=== PATIENT | female | born 2000 | race African-American/Black ===

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

== ENCOUNTER 2019-07-29 12:07 | Inpatient (IN) ==
[2019-07-29] MEDS ORDERED: ONDANSETRON 4 MG/2 ML VIAL IV PRN ×2 (12:13→14:49)
[2019-07-29] MEDS ORDERED: MEPERIDINE 50 MG/1 ML VIAL IV PRN (12:13)
[2019-07-29] MEDS ORDERED: ePHEDrine 50 MG/ML AMP IV PRN (12:21)
[2019-07-29] MEDS ORDERED: LACTATED RINGERS 1,000 ML IV ONE (12:21)
[2019-07-29] MEDS ORDERED: CITRIC ACID/SODIUM CITRATE 30 ML UDCUP PO ONE (12:21)
[2019-07-29] MEDS ORDERED: FAMOTIDINE 20 MG/2 ML VIAL IV ONE (12:21)
[2019-07-29] MEDS ORDERED: NALOXONE 0.4 MG/ML VIAL IV PRN (12:22)
[2019-07-29] MEDS ORDERED: diphenhydrAMINE 50 MG/1 ML VIAL IV PRN ×2 (12:22)
[2019-07-29] MEDS ORDERED: hydrOXYzine HCL 25 MG/1 ML VIAL IM PRN (12:22)
[2019-07-29] MEDS ORDERED: PROMETHAZINE 25 MG/1 ML VIAL IM ONE (12:22)
[2019-07-29] MEDS ORDERED: fentaNYL 2 MCG/ROPIV 0.2% EPID 100 ML EPIDURAL SCH (12:30)
[2019-07-29] MEDS ORDERED: LACTATED RINGERS 1,000 ML IV SCH (12:30)
[2019-07-29 12:36] LABS: Basophils % 0.1 % (0.0-0.8); Eosinophils % 0.1 % (0.00-10.9); Hematocrit 32.7 VOL% (35.7-47.0); Hemoglobin 10.8 GM/DL (12.0-16.0); Immature Granulocytes % 0.4 %; Immature Granulocytes Absolute 0.06 #; Lymphocytes # 1.8 10*3/uL (1.4-4.0); Lymphocytes % 12.6 % (21.3-54.2); Mean Corpuscular Volume 97.6 FL (87-102); Mean Platelet Volume 11.1 FL (9.6-12.0); Monocytes % 7.1 % (1.7-12.7); Neutrophils % 79.7 % (38.7-73.9); Platelet Count 173 T/CUMM (130-400); Red Blood Count 3.35 MC/CUMM (3.8-5.5)
[2019-07-29 12:56] LABS: Alanine Aminotransferase < 9 U/L (13-56); Albumin 2.7 G/DL (3.4-5.0); Alkaline Phosphatase 131 U/L (45-117); Aspartate Amino Transferase 11 U/L (0-37); Blood Urea Nitrogen 5 MG/DL (7-18); Calcium 8.8 MG/DL (8.5-10.1); Estimated Glom Filtration Rate 164 ML/MIN; Glucose 78 MG/DL (74-106); Total Protein 7.5 G/DL (6.4-8.3); Uric Acid 3.9 MG/DL (2.6-6.0)
[2019-07-29] MEDS ORDERED: OXYTOCIN/LR 20 UNIT/1,000 ML BAG IV SCH (13:00)
[2019-07-29] MEDS ORDERED: ROPIVACAINE 0.5% 30 ML VIAL ONE (13:36)
[2019-07-29] MEDS ORDERED: miSOPROStoL 200 MCG TABLET ONE (13:51)
[2019-07-29] MEDS ORDERED: METHYLERGONOVINE 0.2 MG/1 ML AMP ONE (13:51)
[2019-07-29] MEDS ORDERED: CARBOPROST TROMETHAMINE 250 MCG/ML AMP IM ONE (13:51)
[2019-07-29] MEDS ORDERED: LIDOCAINE 1% 50 ML VIAL ONE (13:52)
[2019-07-29] MEDS ORDERED: RHO(D) IMMUNE GLOBULIN 300 MCG SYRINGE IM ONE (14:49)
[2019-07-29] MEDS ORDERED: BISACODYL 10 MG SUPP RECTAL PRN (14:49)
[2019-07-29] MEDS ORDERED: ACETAMINOPHEN 325 MG TABLET PO PRN (14:49)
[2019-07-29] MEDS ORDERED: HYDROCORTISONE 2.5% RECTAL CREAM 30 GM TUBE TOP PRN (14:49)
[2019-07-29] MEDS ORDERED: DIPH/TET/ACEL PERT BOOSTER VACCINE 0.5 ML VIAL IM ONE (14:49)
[2019-07-29] MEDS ORDERED: oxyCODONE/ACETAMINOPHEN 5-325 MG TABLET PO PRN ×2 (14:49)
[2019-07-29] MEDS ORDERED: MEASLES/MUMPS/RUBELLA VACCINE 0.5 ML VIAL SUBCUT ONE (14:49)
[2019-07-29] MEDS ORDERED: OXYTOCIN/LR 20 UNIT/1,000 ML BAG IV ONE (14:49)
[2019-07-29] MEDS ORDERED: WITCH HAZEL PADS 100/JAR TOP PRN (14:49)
[2019-07-29] MEDS ORDERED: BENZOCAINE 20%/MENTHOL 0.5% SPRAY 56 GM CAN TOP PRN (14:49)
[2019-07-29] MEDS ORDERED: LANOLIN 50% CREAM 0.3 OZ TUBE TOP PRN (14:49)
[2019-07-29] MEDS: DOCUSATE SODIUM 100 MG CAPSULE PO SCH (21:49)
[2019-07-30] MEDS: IBUPROFEN 800 MG TABLET PO PRN ×2 (04:42→20:31)
[2019-07-30 07:38] LABS: Basophils % 0.2 % (0.0-0.8); Eosinophils % 0.3 % (0.00-10.9); Hematocrit 29.9 VOL% (35.7-47.0); Hemoglobin 9.6 GM/DL (12.0-16.0); Immature Granulocytes % 0.5 %; Immature Granulocytes Absolute 0.07 #; Lymphocytes # 2.1 10*3/uL (1.4-4.0); Lymphocytes % 15.2 % (21.3-54.2); Mean Corpuscular HGB Conc 32.1 GM/DL (32-36); Mean Corpuscular Volume 98.7 FL (87-102); Mean Platelet Volume 11.5 FL (9.6-12.0); Monocytes % 8.1 % (1.7-12.7); Neutrophils % 75.7 % (38.7-73.9); Platelet Count 137 T/CUMM (130-400); Red Blood Count 3.03 MC/CUMM (3.8-5.5); Red Cell Distribution Width 13.2 % (9.3-17.3); White Blood Count 13.5 T/CUMM (4-12)
[2019-07-30] MEDS: DOCUSATE SODIUM 100 MG CAPSULE PO SCH ×2 (08:20→20:31)
[2019-07-30 12:34] LABS: Anisocytosis 1+; Hypochromasia 1+; Platelet Estimate Adequate; Polychromasia Slight
[2019-07-31] MEDS: DOCUSATE SODIUM 100 MG CAPSULE PO SCH (08:10)
[2019-07-31 09:32] VITALS: BP 116/67
== END 2019-07-31 11:00 | disposition home or self-care (01) | DRG 560 ==
LOC: N.LD 12:07 → N.OB 18:00
PROVIDERS: ADMIT Obstetrics & Gynecology; ATTEND Obstetrics & Gynecology

== ENCOUNTER 2020-07-31 06:08 | Inpatient (IN) ==
[2020-07-31] MEDS ORDERED: ONDANSETRON 4 MG/2 ML VIAL IV PRN (06:15)
[2020-07-31] MEDS ORDERED: MEPERIDINE 50 MG/1 ML VIAL IV PRN (06:15)
[2020-07-31] MEDS ORDERED: BUTORPHANOL 2 MG/ML VIAL IV PRN (06:15)
[2020-07-31] MEDS ORDERED: LACTATED RINGERS 500 ML IV PRN (06:15)
[2020-07-31] MEDS ORDERED: LACTATED RINGERS 1,000 ML IV SCH (06:30)
[2020-07-31] MEDS ORDERED: ePHEDrine 50 MG/ML VIAL IV PRN (06:55)
[2020-07-31] MEDS ORDERED: CITRIC ACID/SODIUM CITRATE 30 ML UDCUP PO ONE (06:55)
[2020-07-31] MEDS ORDERED: NALOXONE 0.4 MG/ML VIAL IV PRN (06:55)
[2020-07-31] MEDS ORDERED: LACTATED RINGERS 1,000 ML IV ONE (06:55)
[2020-07-31] MEDS ORDERED: FAMOTIDINE 20 MG/2 ML VIAL IV ONE (06:55)
[2020-07-31] MEDS ORDERED: diphenhydrAMINE 50 MG/1 ML VIAL IV PRN ×2 (06:55)
[2020-07-31] MEDS ORDERED: fentaNYL 2 MCG/ROPIV 0.2% EPID 100 ML EPIDURAL SCH (07:00)
[2020-07-31] MEDS ORDERED: OXYTOCIN/LR 20 UNIT/1,000 ML BAG IV ONE ×2 (07:06→13:44)
[2020-07-31] MEDS ORDERED: miSOPROStoL 200 MCG TABLET ONE (07:06)
[2020-07-31] MEDS ORDERED: TRANEXAMIC ACID 1,000 MG/10 ML VIAL ONE (07:06)
[2020-07-31] MEDS ORDERED: CARBOPROST TROMETHAMINE 250 MCG/ML AMP IM ONE (07:07)
[2020-07-31] MEDS ORDERED: METHYLERGONOVINE 0.2 MG/1 ML AMP ONE (07:07)
[2020-07-31] MEDS ORDERED: SODIUM CHLORIDE 0.9% 0 ML IV ONE (07:10)
[2020-07-31 07:15] LABS: Basophils % 0.4 % (0.0-0.8); Eosinophils % 0.2 % (0.00-10.9); Hematocrit 28.7 VOL% (35.7-47.0); Hemoglobin 9.3 GM/DL (12.0-16.0); Immature Granulocytes % 0.4 %; Immature Granulocytes Absolute 0.03 #; Lymphocytes % 24.8 % (21.3-54.2); Mean Corpuscular HGB Conc 32.4 GM/DL (32-36); Mean Corpuscular Volume 94.1 FL (87-102); Mean Platelet Volume 11.7 FL (9.6-12.0); Monocytes % 8.9 % (1.7-12.7); Neutrophils % 65.3 % (38.7-73.9); Platelet Count 148 T/CUMM (130-400); Red Blood Count 3.05 MC/CUMM (3.8-5.5); Red Cell Distribution Width 13.2 % (9.3-17.3); White Blood Count 8.1 T/CUMM (4-12)
[2020-07-31 07:33] LABS: Lymphocytes 25 % (20-55); Platelet Estimate Adequate; Segmented Neutrophils 67 % (50-85); Total Cells Counted 100
[2020-07-31 07:34] LABS: Hypochromasia 1+; Microcytosis 1+
[2020-07-31] MEDS ORDERED: OXYTOCIN/LR 20 UNIT/1,000 ML BAG IV SCH (08:45)
[2020-07-31 10:03] LABS: Bacteria,Urine Occasional /HPF (Few); Bilirubin,Urine Negative (Negative); Blood, Urine Negative (Negative); Glucose,Urine (UA) Negative (Negative); Ketones,Urine Negative (Negative); Mucus,Urine Occasional /LPF (Occasional); Nitrite,Urine Negative (Negative); Protein,Urine Negative; RBC,Urine <1 /HPF (0-4); Squamous Epithelial Cell,Urine Occasional /HPF (0-10); Urine Appearance CLEAR (Clear); Urine Color Straw (Yellow); Urine Specific Gravity 1.008 (1.001-1.035); Urine Urobilinogen < 2.0 EU/DL (0.2-1.0)
[2020-07-31 11:29] LABS: Cord Venous Blood HCO3 24.5 MMOL/L; Cord Venous Blood PCO2 45.6 MMHG; Cord Venous Blood PO2 34.6
[2020-07-31] MEDS ORDERED: LANOLIN 50% CREAM 0.3 OZ TUBE TOP PRN (13:44)
[2020-07-31] MEDS ORDERED: MEASLES/MUMPS/RUBELLA VACCINE 0.5 ML VIAL SUBCUT ONE (13:44)
[2020-07-31] MEDS ORDERED: oxyCODONE/ACETAMINOPHEN 5-325 MG TABLET PO PRN ×2 (13:44)
[2020-07-31] MEDS ORDERED: DIPH/TET/ACEL PERT BOOSTER VACCINE 0.5 ML VIAL IM ONE (13:44)
[2020-07-31] MEDS ORDERED: RHO(D) IMMUNE GLOBULIN 300 MCG SYRINGE IM ONE (13:44)
[2020-07-31] MEDS ORDERED: BENZOCAINE 20%/MENTHOL 0.5% SPRAY 56 GM CAN TOP PRN (13:44)
[2020-07-31] MEDS ORDERED: ACETAMINOPHEN 325 MG TABLET PO PRN (13:44)
[2020-07-31] MEDS ORDERED: HYDROCORTISONE 2.5% RECTAL CREAM 30 GM TUBE TOP PRN (13:44)
[2020-07-31] MEDS ORDERED: BISACODYL 10 MG SUPP RECTAL PRN (13:44)
[2020-07-31] MEDS ORDERED: WITCH HAZEL PADS 100/JAR TOP PRN (13:44)
[2020-07-31] MEDS: IBUPROFEN 800 MG TABLET PO PRN (16:16)
[2020-07-31] MEDS: DOCUSATE SODIUM 100 MG CAPSULE PO SCH (21:17)
[2020-08-01] MEDS: IBUPROFEN 800 MG TABLET PO PRN ×3 (00:17→20:11)
[2020-08-01 05:03] LABS: Basophils % 0.3 % (0.0-0.8); Eosinophils # 0.1 10*3/uL (0.0-0.87); Eosinophils % 0.7 % (0.00-10.9); Hematocrit 29.4 VOL% (35.7-47.0); Hemoglobin 9.4 GM/DL (12.0-16.0); Immature Granulocytes Absolute 0.11 #; Lymphocytes # 2.4 10*3/uL (1.4-4.0); Lymphocytes % 22.3 % (21.3-54.2); Mean Corpuscular Volume 94.5 FL (87-102); Mean Platelet Volume 12.1 FL (9.6-12.0); Monocytes % 6.5 % (1.7-12.7); Neutrophils % 69.2 % (38.7-73.9); Platelet Count 133 T/CUMM (130-400); Red Blood Count 3.11 MC/CUMM (3.8-5.5); Red Cell Distribution Width 13.2 % (9.3-17.3); White Blood Count 10.9 T/CUMM (4-12)
[2020-08-01] MEDS: DOCUSATE SODIUM 100 MG CAPSULE PO SCH ×2 (09:54→20:11)
[2020-08-02 08:21] VITALS: BP 109/71
[2020-08-02] MEDS: DOCUSATE SODIUM 100 MG CAPSULE PO SCH (08:33)
== END 2020-08-02 11:23 | disposition home or self-care (01) | DRG 560 ==
LOC: N.LD 06:08 → N.OB 13:44
PROVIDERS: ADMIT Obstetrics & Gynecology; ATTEND Obstetrics & Gynecology

== ENCOUNTER 2020-12-07 16:09 | Observation (INO) ==
[2020-12-07] MEDS ORDERED: SODIUM CHLORIDE 0.9% 1,000 ML IV STA (16:59)
[2020-12-07 17:13] LABS: Basophils % 0.1 % (0.0-0.8); Eosinophils % 0.1 % (0.00-10.9); Hematocrit 28.9 VOL% (35.7-47.0); Hemoglobin 9.7 GM/DL (12.0-16.0); Immature Granulocytes % 0.5 %; Immature Granulocytes Absolute 0.07 #; Lymphocytes # 2.3 10*3/uL (1.4-4.0); Lymphocytes % 16.8 % (21.3-54.2); Mean Corpuscular HGB Conc 33.6 GM/DL (32-36); Mean Corpuscular Volume 95.1 FL (87-102); Mean Platelet Volume 10.9 FL (9.6-12.0); Monocytes % 7.8 % (1.7-12.7); Neutrophils % 74.7 % (38.7-73.9); Platelet Count 248 T/CUMM (130-400); Red Blood Count 3.04 MC/CUMM (3.8-5.5); Red Cell Distribution Width 12.3 % (9.3-17.3); White Blood Count 13.6 T/CUMM (4-12)
[2020-12-07] MEDS ORDERED: ONDANSETRON 4 MG/2 ML VIAL IV PRN ×2 (18:19→20:52)
[2020-12-07] MEDS ORDERED: LACTATED RINGERS 1,000 ML IV SCH ×2 (18:30→21:00)
[2020-12-07] MEDS ORDERED: LIDOCAINE 2% 5 ML VIAL ONE (19:15)
[2020-12-07] MEDS ORDERED: fentaNYL 100 MCG/2 ML VIAL ONE (19:15)
[2020-12-07] MEDS ORDERED: MIDAZOLAM 2 MG/2 ML VIAL ONE (19:15)
[2020-12-07] MEDS ORDERED: ONDANSETRON 4 MG/2 ML VIAL ONE ×2 (19:15→20:03)
[2020-12-07] MEDS ORDERED: propofoL 200 MG/20 ML VIAL IV ONE (19:15)
[2020-12-07] MEDS ORDERED: KETOROLAC 30 MG/1 ML VIAL ONE (20:03)
[2020-12-07] MEDS ORDERED: SEVOFLURANE 1 UNIT/15 MINUTE INH ONE (20:03)
[2020-12-07] MEDS ORDERED: DEXAMETHASONE 4 MG/1 ML VIAL ONE (20:03)
[2020-12-07] MEDS ORDERED: ACETAMINOPHEN 325 MG TABLET PO PRN (20:52)
[2020-12-07] MEDS ORDERED: IBUPROFEN 800 MG TABLET PO PRN (20:52)
[2020-12-07] MEDS ORDERED: BUTORPHANOL 2 MG/ML VIAL IV PRN (20:52)
[2020-12-07] MEDS ORDERED: miSOPROStoL 200 MCG TABLET RECTAL ONE (21:03)
[2020-12-07] MEDS ORDERED: miSOPROStoL 200 MCG TABLET ONE (21:27)
[2020-12-07 21:32] LABS: Hypochromasia 1+; Platelet Estimate Normal; Reactive Lymphocytes 2+
[2020-12-08 05:57] LABS: Basophils % 0.1 % (0.0-0.8); Hematocrit 22.4 VOL% (35.7-47.0); Immature Granulocytes % 0.5 %; Immature Granulocytes Absolute 0.05 #; Lymphocytes # 0.6 10*3/uL (1.4-4.0); Lymphocytes % 6.4 % (21.3-54.2); Mean Corpuscular Volume 96.6 FL (87-102); Mean Platelet Volume 10.8 FL (9.6-12.0); Monocytes % 1.3 % (1.7-12.7); Neutrophils % 91.7 % (38.7-73.9); Platelet Count 208 T/CUMM (130-400); Red Cell Distribution Width 12.6 % (9.3-17.3); White Blood Count 9.8 T/CUMM (4-12)
[2020-12-08 06:02] LABS: Hemoglobin 7.4 GM/DL (12.0-16.0); Red Blood Count 2.32 MC/CUMM (3.8-5.5)
[2020-12-08 06:17] LABS: Lymphocytes 3 % (20-55); Segmented Neutrophils 96 % (50-85); Total Cells Counted 100
[2020-12-08 06:18] LABS: Hypochromasia Slight; Microcytosis 1+; Platelet Estimate Normal
[2020-12-08 08:59] VITALS: BP 131/68
[2020-12-08] MEDS ORDERED: FERROUS SULFATE 325 MG TABLET PO SCH (21:00)
== END 2020-12-08 10:55 | disposition home or self-care (01) ==
LOC: N.ED 16:09 → N.EDINP 16:09 → N.OB 19:09
PROVIDERS: ADMIT Obstetrics & Gynecology; ATTEND Obstetrics & Gynecology

== ENCOUNTER 2022-01-19 11:13 | Inpatient (IN) ==
[2022-01-19] MEDS ORDERED: LACTATED RINGERS 1,000 ML IV SCH ×2 (12:00→12:30)
[2022-01-19] MEDS ORDERED: BUTORPHANOL 2 MG/ML VIAL IV PRN (12:00)
[2022-01-19] MEDS ORDERED: miSOPROStoL 200 MCG TABLET RECTAL PRN (12:00)
[2022-01-19] MEDS ORDERED: METHYLERGONOVINE 0.2 MG/1 ML AMP IM PRN (12:00)
[2022-01-19] MEDS ORDERED: CARBOPROST TROMETHAMINE 250 MCG/ML AMP IM PRN (12:00)
[2022-01-19] MEDS ORDERED: ONDANSETRON 4 MG/2 ML VIAL IV PRN (12:00)
[2022-01-19] MEDS ORDERED: MEPERIDINE 50 MG/1 ML VIAL IV PRN (12:00)
[2022-01-19] MEDS ORDERED: LACTATED RINGERS 500 ML IV PRN (12:00)
[2022-01-19] MEDS ORDERED: OXYTOCIN/LR 20 UNIT/1,000 ML BAG IV ONE ×2 (12:00→16:47)
[2022-01-19] MEDS ORDERED: TRANEXAMIC ACID 1,000 MG in SODIUM CHLORIDE 0.9% 100 ML IV PRN (12:00)
[2022-01-19] MEDS ORDERED: OXYTOCIN/LR 20 UNIT/1,000 ML BAG IV SCH (12:00)
[2022-01-19] MEDS ORDERED: diphenhydrAMINE 50 MG/1 ML VIAL IV PRN ×2 (12:06)
[2022-01-19] MEDS ORDERED: FAMOTIDINE 20 MG/2 ML VIAL IV ONE (12:06)
[2022-01-19] MEDS ORDERED: NALOXONE 0.4 MG/ML VIAL IV PRN (12:06)
[2022-01-19] MEDS ORDERED: ePHEDrine 50 MG/ML VIAL IV PRN (12:06)
[2022-01-19] MEDS ORDERED: CITRIC ACID/SODIUM CITRATE 30 ML UDCUP PO ONE (12:06)
[2022-01-19] MEDS ORDERED: fentaNYL 2 MCG/ROPIV 0.2% EPID 100 ML EPIDURAL SCH (12:30)
[2022-01-19 12:43] LABS: Basophils % 0.2 % (0.0-0.8); Eosinophils % 0.1 % (0.00-10.9); Hematocrit 27.8 VOL% (35.7-47.0); Hemoglobin 8.2 GM/DL (12.0-16.0); Immature Granulocytes % 0.6 %; Immature Granulocytes Absolute 0.08 #; Lymphocytes # 1.7 10*3/uL (1.4-4.0); Lymphocytes % 12.3 % (21.3-54.2); Mean Corpuscular HGB Conc 29.5 GM/DL (32-36); Mean Corpuscular Volume 82.5 FL (87-102); Mean Platelet Volume 12.3 FL (9.6-12.0); Monocytes # 1.1 10*3/uL (0.11-0.8); Monocytes % 7.7 % (1.7-12.7); Neutrophils % 79.1 % (38.7-73.9); Platelet Count 163 T/CUMM (130-400); Red Blood Count 3.37 MC/CUMM (3.8-5.5); Red Cell Distribution Width 15.9 % (9.3-17.3); White Blood Count 13.8 T/CUMM (4-12)
[2022-01-19] MEDS ORDERED: ACETAMINOPHEN/CODEINE 300-30 MG TABLET PO ONE (14:18)
[2022-01-19 14:21] LABS: Cord Arterial Blood HCO3 24.1 MMOL/L
[2022-01-19 14:22] LABS: Cord Venous Blood HCO3 24.6 MMOL/L; Cord Venous Blood PCO2 39.9 MMHG; Cord Venous Blood PO2 39.2
[2022-01-19] MEDS ORDERED: DIPH/TET/ACEL PERT BOOSTER VACCINE 0.5 ML VIAL IM ONE (16:47)
[2022-01-19] MEDS ORDERED: BENZOCAINE 20%/MENTHOL 0.5% SPRAY 56 GM CAN TOP PRN (16:47)
[2022-01-19] MEDS ORDERED: WITCH HAZEL PADS 100/JAR TOP PRN (16:47)
[2022-01-19] MEDS ORDERED: oxyCODONE/ACETAMINOPHEN 5-325 MG TABLET PO PRN ×2 (16:47)
[2022-01-19] MEDS ORDERED: RHO(D) IMMUNE GLOBULIN 300 MCG SYRINGE IM ONE (16:47)
[2022-01-19] MEDS ORDERED: MEASLES/MUMPS/RUBELLA VACCINE 0.5 ML VIAL SUBCUT ONE (16:47)
[2022-01-19] MEDS ORDERED: ACETAMINOPHEN 325 MG TABLET PO PRN (16:47)
[2022-01-19] MEDS ORDERED: BISACODYL 10 MG SUPP RECTAL PRN (16:47)
[2022-01-19] MEDS ORDERED: HYDROCORTISONE 2.5% RECTAL CREAM 30 GM TUBE TOP PRN (16:47)
[2022-01-19] MEDS ORDERED: LANOLIN 50% CREAM 0.3 OZ TUBE TOP PRN (16:47)
[2022-01-19] MEDS: DOCUSATE SODIUM 100 MG CAPSULE PO SCH (21:15)
[2022-01-19] MEDS: FERROUS SULFATE 325 MG TABLET PO SCH (21:16)
[2022-01-20] MEDS: IBUPROFEN 800 MG TABLET PO PRN ×2 (02:32→11:26)
[2022-01-20 06:33] LABS: Basophils % 0.2 % (0.0-0.8); Eosinophils # 0.1 10*3/uL (0.0-0.87); Eosinophils % 0.3 % (0.00-10.9); Hematocrit 26.8 VOL% (35.7-47.0); Hemoglobin 8.1 GM/DL (12.0-16.0); Immature Granulocytes % 0.6 %; Immature Granulocytes Absolute 0.09 #; Lymphocytes # 2.8 10*3/uL (1.4-4.0); Lymphocytes % 17.8 % (21.3-54.2); Mean Corpuscular HGB Conc 30.2 GM/DL (32-36); Mean Platelet Volume 12.3 FL (9.6-12.0); Monocytes # 1.2 10*3/uL (0.11-0.8); Monocytes % 7.9 % (1.7-12.7); Neutrophils % 73.2 % (38.7-73.9); Platelet Count 158 T/CUMM (130-400); Red Blood Count 3.27 MC/CUMM (3.8-5.5); Red Cell Distribution Width 15.6 % (9.3-17.3); White Blood Count 15.5 T/CUMM (4-12)
[2022-01-20] MEDS: FERROUS SULFATE 325 MG TABLET PO SCH ×2 (09:39→20:59)
[2022-01-20] MEDS: DOCUSATE SODIUM 100 MG CAPSULE PO SCH ×2 (09:39→20:59)
[2022-01-21] MEDS: IBUPROFEN 800 MG TABLET PO PRN (01:55)
[2022-01-21 07:31] VITALS: BP 125/83
[2022-01-21] MEDS: DOCUSATE SODIUM 100 MG CAPSULE PO SCH (08:33)
[2022-01-21] MEDS: FERROUS SULFATE 325 MG TABLET PO SCH (08:33)
== END 2022-01-21 13:10 | disposition home or self-care (01) | DRG 560 ==
LOC: N.LDOUT 11:13 → N.LD 11:15 → N.OB 17:15
PROVIDERS: ADMIT Obstetrics & Gynecology; ATTEND Obstetrics & Gynecology